=== PATIENT | female | born 1955 | race Caucasian/White ===

== ENCOUNTER 2016-07-07 04:23 | Emergency (ER) | payer SELFPAY ==
[~2016-07-07] VITALS: Ht 157.5 cm; Wt 91.0 kg
[~2016-07-07 04:23] MED LIST: HYDR-3533 PO
[2016-07-07 04:38] VITALS: BP 154/70; PULSE 94; RESP 16; TEMP 98.6; O2SAT 95
[2016-07-07 04:44] LABS: AUTOMATED NEUTROPHIL # 4.2 TH/MM3 (1.8-7.7); BASOPHIL # 0.1 TH/MM3 (0-0.2); EOSINOPHIL # 0.2 TH/MM3 (0-0.4); EOSINOPHIL % 3.3 % (0.0-4.0); HEMATOCRIT 34.8 % (35.0-46.0); LYMPH % 14.7 % (9.0-44.0); LYMPHOCYTE # 0.8 TH/MM3 (1.0-4.8); MEAN CORPUSCULAR HEMOGLOBIN 24.7 PG (27.0-34.0); MONO % 8.5 % (0.0-8.0); NEUT % 72.5 % (16.0-70.0); PLATELET COUNT 150 TH/MM3 (150-450); RED BLOOD COUNT 4.52 MIL/MM3 (4.00-5.30); RED CELL DISTRIBUTION WIDTH 18.6 % (11.6-17.2); WHITE BLOOD COUNT 5.8 TH/MM3 (4.0-11.0)
[2016-07-07 04:45] LABS: HEMO FLAGS AUTO DIFF
[2016-07-07] MEDS ORDERED: TETANUS/DIPHTHERIA TOXOID ADULT 0.5 ML VIAL IM ONE (04:45)
[2016-07-07] MEDS ORDERED: ALLO300T2 PO (04:50)
[2016-07-07 05:19] LABS: ALKALINE PHOSPHATASE 134 U/L (45-117); TOTAL BILIRUBIN ADULT 0.9 MG/DL (0.2-1.0)
--- NOTE | 2016-07-07 05:20 | PD ---
HPI Chief Complaint: Fall Time Seen by Provider: 04:32 Travel History International Travel<30 days: No Contact w/Intl Traveler<30days: No Traveled to known affect area: No History of Present Illness HPI This is a 61-year-old female with history of psoriasis, pancreatitis, chronic alcohol use, who presents after having a fall in the bathroom. The patient states she got up to use the bathroom and fell towards the vanity. The patient reports positive loss of consciousness. She reports pain to her face and nose. She denies any head or neck pain. She denies any abdominal pain. She denies any back or extremity pain. Patient is unsure of her last tetanus immunization. PFSH Past Medical History Arthritis: Yes (RIGHT HIP, BILATERAL KNEES) Autoimmune Disease: No Blood Disorders: No Depression: Yes Heart Rhythm Problems: No Cancer: Yes (ENDOMETRIAL CANCER) Cardiac Catheterization: Yes Cardiovascular Problems: No High Cholesterol: No Chemotherapy: Yes Chest Pain: No Congestive Heart Failure: No Diabetes: No Diminished Hearing: No Endocrine: No Gastrointestinal Disorders: Yes (GERD, perforated ulcer) GERD: Yes Gout: Yes Genitourinary: No Hepatitis: No Hiatal Hernia: No Hypertension: Yes Immune Disorder: No Implanted Vascular Access Dvce: Yes (port l. chest) Medical other: Yes (ARTHRITIS) Musculoskeletal: Yes (ARTHRITIS) Neurologic: No Psychiatric: No Respiratory: No Integumentary: Yes (PSORIASIS) Immunizations Current: Yes Myocardial Infarction: Yes (2006) Pancreatitis: Yes Radiation Therapy: Yes Thyroid Disease: No Ulcer: No Tetanus Vaccination: Unknown Influenza Vaccination: No Menopausal: Yes Past Surgical History Abdominal Surgery: Yes (APPENDECTOMY AGE 4; [facility] 1997) AICD: No Appendectomy: Yes Arteriovenous Shunt: No Cardiac Surgery: No Cholecystectomy: Yes (1995) Coronary Artery Bypass Graft: No Ear Surgery: No Endocrine Surgery: No Eye Surgery: Yes Genitourinary Surgery: No Gynecologic Surgery: Yes (D&C ; ) Hysterectomy: Yes Insulin Pump: No Joint Replacement: No Neurologic Surgery: No Oral Surgery: Yes (T&A AGE 1) Pacemaker: No Thoracic Surgery: No Tonsillectomy: Yes Other Surgery: Yes Family History Family Myocardial Infarction: Yes Social History Alcohol Use: Yes (Few drinks every day in past, quit) Tobacco Use: No (QUIT 1999) Substance Use: No Allergies-Medications (Allergen,Severity, Reaction): Coded Allergies: Oxycodone (Verified Allergy, Intermediate, RASH, 07/07/16) Erythromycin (Verified Allergy, Mild, RASH, 07/07/16) Penicillin (Verified Allergy, Mild, RASH, 07/07/16) Reported Meds & Prescriptions Reported Meds & Active Scripts Active Keflex (Cephalexin) 500 Mg Cap 500 Mg PO Q6H Lortab (Hydrocodone-Acetaminophen) 5-325 Mg Tab 1 Tab PO Q4H PRN Reported Allopurinol 300 Mg Tab 300 Mg PO HS Review of Systems Except as stated in HPI: all other systems reviewed are Neg Eyes: No: Diploplia, Blurred Vision HENT: Positive: Other, No: Headaches, Neck Pain Cardiovascular: No: Chest Pain or Discomfort (nose and facial bone pain), Palpitations Respiratory: No: Cough, Shortness of Breath Gastrointestinal: No: Nausea, Vomiting, Abdominal Pain Genitourinary: No: Incontinence Musculoskeletal: No: Weakness, Pain (no extremity pain) Neurologic: Positive: Other (positive loss of consciousness), No: Weakness, Headache Physical Exam Narrative GENERAL: Well-developed well-nourished female in C-spine backboard immobilization. SKIN: Focused skin assessment warm/dry. Patient has eczema to her bilateral lower extremities and back. There is no evidence of cellulitis or drainage. HEAD: Normocephalic. The patient had multiple contusions to her face with left orbital ecchymosis and swelling. EYES: Pupils equal and round. Her left eye was swollen however on opening her pupils were reactive. There is bleeding noted at the left lower orbital eyelid. No obvious large laceration appreciated. ENT: There is a laceration across the base/bridge of her nose. There is a small cut on her left lower lip that is not actively bleeding. This does not require repair. NECK: Trachea midline. No JVD. Supple. CARDIOVASCULAR: Regular rate and rhythm. No murmur appreciated. RESPIRATORY: No accessory muscle use. Clear to auscultation. Breath sounds equal bilaterally. GASTROINTESTINAL: Abdomen soft, obese, non-tender, nondistended. She does have a well-healed scar that is vertical. MUSCULOSKELETAL: No obvious deformities. No clubbing. No cyanosis. No edema. NEUROLOGICAL: Awake and alert. No obvious cranial nerve deficits. Motor grossly within normal limits. Normal speech. Data Data Last Documented VS Vital Signs Date Time Temp Pulse Resp B/P Pulse Ox O2 Delivery O2 Flow Rate FiO2 07/07/16 04:38 98.6 94 16 154/70 95 Orders Complete Blood Count With Diff (07/07/16 04:32) Comprehensive Metabolic Panel (07/07/16 04:32) Ct Brain W/O Iv Contrast(Rout) (07/07/16 04:32) Alcohol (Ethanol) (07/07/16 04:32) Ct Cerv Spine W/O Contrast (07/07/16 04:32) Tetanus/Diphtheria Tox Adult (Tetanus/Di (07/07/16 04:45) Ct Facial Bones W/O Iv Cont (07/07/16 04:49) Lidocai-Epi 1%-1:100,000 Inj (Xylocaine- (07/07/16 06:00) Labs Laboratory Tests Test 07/07/16 04:30 White Blood Count 5.8 TH/MM3 Red Blood Count 4.52 MIL/MM3 Hemoglobin 11.1 GM/DL Hematocrit 34.8 % Mean Corpuscular Volume 77.0 FL Mean Corpuscular Hemoglobin 24.7 PG Mean Corpuscular Hemoglobin 32.0 % Concent Red Cell Distribution Width 18.6 % Platelet Count 150 TH/MM3 Mean Platelet Volume 9.6 FL Neutrophils (%) (Auto) 72.5 % Lymphocytes (%) (Auto) 14.7 % Monocytes (%) (Auto) 8.5 % Eosinophils (%) (Auto) 3.3 % Basophils (%) (Auto) 1.0 % Neutrophils # (Auto) 4.2 TH/MM3 Lymphocytes # (Auto) 0.8 TH/MM3 Monocytes # (Auto) 0.5 TH/MM3 Eosinophils # (Auto) 0.2 TH/MM3 Basophils # (Auto) 0.1 TH/MM3 CBC Comment AUTO DIFF Differential Comment AUTO DIFF CONFIRMED Platelet Estimate NORMAL Platelet Morphology Comment NORMAL Ovalocytes 1+ Acanthocytes OCC Keratocytes OCC Sodium Level 140 MEQ/L Potassium Level 4.4 MEQ/L Chloride Level 105 MEQ/L Carbon Dioxide Level 24.7 MEQ/L Anion Gap 10 MEQ/L Blood Urea Nitrogen 12 MG/DL Creatinine 0.78 MG/DL Estimat Glomerular Filtration 75 ML/MIN Rate Random Glucose 115 MG/DL Calcium Level 9.0 MG/DL Total Bilirubin 0.9 MG/DL Aspartate Amino Transf 59 U/L (AST/SGOT) Alanine Aminotransferase 25 U/L (ALT/SGPT) Alkaline Phosphatase 134 U/L Total Protein 7.9 GM/DL Albumin 3.6 GM/DL Ethyl Alcohol Level 261 MG/DL MDM Medical Decision Making Medical Screen Exam Complete: Yes Emergency Medical Condition: Yes Interpretation(s) Last [address] 07/07/16 0449 Signed Impressions: Service Date/Time: Thursday, July 07, 2016 04:53 - CONCLUSION: Small nondisplaced fracture involving the left nasal bone. Soft tissue swelling over left orbit. Puneet Perez MD Head CT 07/07/16 0432 Signed Impressions: Service Date/Time: Thursday, July 07, 2016 04:50 - CONCLUSION: 1. Unremarkable CT scan of brain. 2. Soft tissue swelling over left orbit. Puneet Perez MD Cervical Spine CT 07/07/16 0432 Signed Impressions: Service Date/Time: Thursday, July 07, 2016 04:51 - CONCLUSION: 1. No acute bony fracture. 2. Left paracentral disc bulging with disc osteophyte complex at C5- 6. 3. Primary degenerative changes of the mid to lower cervical spine. Puneet Perez MD Differential Diagnosis Facial bone fractures versus intracranial hemorrhage versus cervical spine injury versus electrolyte abnormality Narrative Course 61-year-old female who presents after having a fall in the bathroom. Patient states she got up to use the restroom and fell striking her head on the vanity. The patient has a nondisplaced left nasal bone fracture. CT scan of the brain and cervical spine show no evidence of acute injury. She does have degenerative changes of her cervical spine. Laboratory tests are within normal limits. Serum alcohol level is 290. She has had her laceration repaired she' ll FRANK mcgowan. She will be placed on Keflex. She is instructed to not drink alcohol. She was given tetanus immunization as well. She is instructed to follow up with her primary care physician. Diagnosis Primary Impression: Blunt head trauma Additional Impressions: Nasal bone fracture Alcohol intoxication Additional Instructions: Avoid drinking alcohol. Follow up with primary care physician. Suture removal in 5-7 days. Med/Other Pt SpecificInfo: Prescription(s) given Scripts Cephalexin (Keflex)500 Mg Glv530 Mg PO Q6H #28 CAP Ref 0 Prov:Carl Rajput MD 07/07/16 Disposition: 01 DISCHARGE HOME Condition: Stable Carl Rajput MD July 07, 2016 05:20
--- NOTE | 2016-07-07 05:20 | RADRPT ---
EXAM DATE/TIME: 07/07/2016 04:50 [facility] COMPARISON: No previous studies available for comparison. INDICATIONS : Trauma, fall onto counter. RADIATION DOSE: 56.35 CTDIvol (mGy) MEDICAL HISTORY : Hypertension. Osteoarthritis. SURGICAL HISTORY : None. ENCOUNTER: Initial ACUITY: 1 day PAIN SCALE: 8/10 LOCATION: cranial TECHNIQUE: Multiple contiguous axial images were obtained of the head. Using automated exposure control and adj ustment of the mA and/or kV according to patient size, radiation dose was kept as low as reasonably a chievable to obtain optimal diagnostic quality images. FINDINGS: CEREBRUM: The ventricles are normal for age. No evidence of midline shift, mass lesion, hemorrhage or acute in farction. No extra-axial fluid collections are seen. POSTERIOR FOSSA: The cerebellum and brainstem are intact. The 4th ventricle is midline. The cerebellopontine angle i s unremarkable. EXTRACRANIAL: The visualized portion of the orbits is intact. There is soft tissue swelling over the left orbit. SKULL: The calvaria is intact. No evidence of skull fracture. CONCLUSION: 1. Unremarkable CT scan of brain. 2. Soft tissue swelling over left orbit. Puneet Perez MD on July 07, 2016 at 5:17 Board Certified Radiologist. This report was verified electronically.
--- NOTE | 2016-07-07 05:23 | RADRPT ---
EXAM DATE/TIME: 07/07/2016 04:51 [facility] COMPARISON: No previous studies available for comparison. INDICATIONS : Trauma, fall onto counter. RADIATION DOSE: 24.92 CTDIvol (mGy) MEDICAL HISTORY : Hypertension. Osteoarthritis. SURGICAL HISTORY : None. ENCOUNTER: Initial ACUITY: 1 day PAIN SCALE: 5/10 LOCATION: neck TECHNIQUE: Volumetric scanning of the cervical spine was performed. Multiplanar reconstructions in the sagittal, coronal and oblique axial planes were performed. Using automated exposure control and adjustment o f the mA and/or kV according to patient size, radiation dose was kept as low as reasonably achievable to obtain optimal diagnostic quality images. FINDINGS: VERTEBRAE: Normal vertebral body height. There are primary bony degenerative changes involving the mid to lower cervical spine. There is disc space narrowing at C5-6 and C6-7. ALIGNMENT: No evidence of subluxation. C2-C3: The bony spinal canal is normal in size. No evidence of disc bulge or herniation. The neural forami na are bilaterally patent. C3-C4: The bony spinal canal is normal in size. No evidence of disc bulge or herniation. The neural forami na are bilaterally patent. C4-C5: The bony spinal canal is normal in size. No evidence of disc bulge or herniation. The neural forami na are bilaterally patent. There is facet arthritis on the left side. C5-C6: Left paracentral bulging disc osteophyte complex. The neural foramina are patent bilaterally. C6-C7: The bony spinal canal is normal in size. No evidence of disc bulge or herniation. The neural forami na are bilaterally patent. C7-T1: The bony spinal canal is normal in size. No evidence of disc bulge or herniation. The neural forami na are bilaterally patent. CONCLUSION: 1. No acute bony fracture. 2. Left paracentral disc bulging with disc osteophyte complex at C5-6. 3. Primary degenerative changes of the mid to lower cervical spine. Puneet Perez MD on July 07, 2016 at 5:19 Board Certified Radiologist. This report was verified electronically.
[2016-07-07 05:25] LABS: ACANTHOCYTES OCC (NORMAL); ALT (GPT) 25 U/L (10-53); ANION GAP 10 MEQ/L (5-15); AST (GOT) 59 U/L (15-37); BICARBONATE 24.7 MEQ/L (21.0-32.0); BLOOD UREA NITROGEN 12 MG/DL (7-18); CHLORIDE 105 MEQ/L (98-107); GLOMERULAR FILTRATION RATE 75 ML/MIN (>89); KERATOCYTES OCC (NORMAL); OVALOCYTES 1+ (NORMAL); PLATELET ESTIMATE SMEAR NORMAL (NORMAL); PLATELET MORPHOLOGY NORMAL (NORMAL); POTASSIUM 4.4 MEQ/L (3.5-5.1); SODIUM (NA) 140 MEQ/L (136-145)
--- NOTE | 2016-07-07 05:25 | RADRPT ---
EXAM DATE/TIME: 07/07/2016 04:53 [facility] COMPARISON: No previous studies available for comparison. INDICATIONS : Trauma, fall onto counter. RADIATION DOSE: 36.81 CTDIvol (mGy) MEDICAL HISTORY : Hypertension. Osteoarthritis. SURGICAL HISTORY : None. ENCOUNTER: Initial ACUITY: 1 day PAIN SCORE: 8/10 LOCATION: facial TECHNIQUE: Volumetric scanning of the facial bones was performed. Using automated exposure control and adjustme nt of the mA and/or kV according to patient size, radiation dose was kept as low as reasonably achiev able to obtain optimal diagnostic quality images. FINDINGS: There is a small fracture involving the left nasal bone. The rest of the bony structures involving th e facial bones are grossly intact. The paranasal sinuses are grossly clear. There is nasal septal dev iation to the left. The mandible is grossly intact. There is soft tissue swelling over the left orbit . Both globes are grossly intact. CONCLUSION: Small nondisplaced fracture involving the left nasal bone. Soft tissue swelling over left orbit. Puneet Perez MD on July 07, 2016 at 5:22 Board Certified Radiologist. This report was verified electronically.
[2016-07-07 05:26] LABS: SCAN/DIFF AUTO DIFF CONFIRMED
[2016-07-07] MEDS ORDERED: LIDOCAINE 1%/EPINEPHrine 1:100,000 SOLN 20 ML VIAL INFIL ONE (06:00)
[2016-07-07] MEDS ORDERED: CEPH-460 PO (06:17)
--- NOTE | 2016-07-07 06:18 | PD ---
Physical Exam Date Seen by Provider: July 07, 2016 Time Seen by Provider: 06:15 Narrative Skin: Patient has a 2.5 cm laceration across the bridge of the nose. This is a lazy L-type laceration. Data Data Last Documented VS Vital Signs Date Time Temp Pulse Resp B/P Pulse Ox O2 Delivery O2 Flow Rate FiO2 07/07/16 04:38 98.6 94 16 154/70 95 Orders Complete Blood Count With Diff (07/07/16 04:32) Comprehensive Metabolic Panel (07/07/16 04:32) Ct Brain W/O Iv Contrast(Rout) (07/07/16 04:32) Alcohol (Ethanol) (07/07/16 04:32) Ct Cerv Spine W/O Contrast (07/07/16 04:32) Tetanus/Diphtheria Tox Adult (Tetanus/Di (07/07/16 04:45) Ct Facial Bones W/O Iv Cont (07/07/16 04:49) Lidocai-Epi 1%-1:100,000 Inj (Xylocaine- (07/07/16 06:00) Labs Laboratory Tests Test 07/07/16 04:30 White Blood Count 5.8 TH/MM3 Red Blood Count 4.52 MIL/MM3 Hemoglobin 11.1 GM/DL Hematocrit 34.8 % Mean Corpuscular Volume 77.0 FL Mean Corpuscular Hemoglobin 24.7 PG Mean Corpuscular Hemoglobin 32.0 % Concent Red Cell Distribution Width 18.6 % Platelet Count 150 TH/MM3 Mean Platelet Volume 9.6 FL Neutrophils (%) (Auto) 72.5 % Lymphocytes (%) (Auto) 14.7 % Monocytes (%) (Auto) 8.5 % Eosinophils (%) (Auto) 3.3 % Basophils (%) (Auto) 1.0 % Neutrophils # (Auto) 4.2 TH/MM3 Lymphocytes # (Auto) 0.8 TH/MM3 Monocytes # (Auto) 0.5 TH/MM3 Eosinophils # (Auto) 0.2 TH/MM3 Basophils # (Auto) 0.1 TH/MM3 CBC Comment AUTO DIFF Differential Comment AUTO DIFF CONFIRMED Platelet Estimate NORMAL Platelet Morphology Comment NORMAL Ovalocytes 1+ Acanthocytes OCC Keratocytes OCC Sodium Level 140 MEQ/L Potassium Level 4.4 MEQ/L Chloride Level 105 MEQ/L Carbon Dioxide Level 24.7 MEQ/L Anion Gap 10 MEQ/L Blood Urea Nitrogen 12 MG/DL Creatinine 0.78 MG/DL Estimat Glomerular Filtration 75 ML/MIN Rate Random Glucose 115 MG/DL Calcium Level 9.0 MG/DL Total Bilirubin 0.9 MG/DL Aspartate Amino Transf 59 U/L (AST/SGOT) Alanine Aminotransferase 25 U/L (ALT/SGPT) Alkaline Phosphatase 134 U/L Total Protein 7.9 GM/DL Albumin 3.6 GM/DL Ethyl Alcohol Level 261 MG/DL [facility] Medical Record Reviewed: Yes Supervised Visit with MAGGIE: Yes Interpretation(s) Last [address] 07/07/16 0449 Signed Impressions: Service Date/Time: Thursday, July 07, 2016 04:53 - CONCLUSION: Small nondisplaced fracture involving the left nasal bone. Soft tissue swelling over left orbit. Puneet Perez MD Head CT 07/07/16 0432 Signed Impressions: Service Date/Time: Thursday, July 07, 2016 04:50 - CONCLUSION: 1. Unremarkable CT scan of brain. 2. Soft tissue swelling over left orbit. Puneet Perez MD Cervical Spine CT 07/07/16 0432 Signed Impressions: Service Date/Time: Thursday, July 07, 2016 04:51 - CONCLUSION: 1. No acute bony fracture. 2. Left paracentral disc bulging with disc osteophyte complex at C5- 6. 3. Primary degenerative changes of the mid to lower cervical spine. Puneet Perez MD Differential Diagnosis MDM: High Differential diagnoses: Fracture, sprain, strain, dislocation, contusion, neurovascular injury Narrative Course Patient's laceration is closed with sutures. Tetanus status updated. Procedures Procedure Narrative LACERATION LOCATION: Nasal bridge LENGTH: 2.5 cm NUMBER OF STITCHES/GARO: 5 REPAIR: The area of the laceration was prepped with Betadine and sterilely draped. The laceration was infiltrated with 1% lidocaine with epinephrine. The wound was copiously irrigated and explored without evidence of foreign body , tendon injury or neurovascular injury. The wound was closed using 6-0 proline. This was a simple single layer repair. A sterile dressing was applied. The patient was advised to keep the dressing clean and dry. Patient tolerated the procedure well. Diagnosis Primary Impression: Blunt head trauma Additional Impressions: Nasal bone fracture Alcohol intoxication Additional Instruction: Avoid drinking alcohol. Follow up with primary care physician. Rest. Ice pack tonight. Tylenol or Advil for pain. Daily wound care with soap, water, Neosporin. Sutures out in 5 days. Sunscreen and mederma for 6 months. Return to the ER for any problems. Med/Other Pt SpecificInfo: Wound Care Disposition: 01 DISCHARGE HOME Condition: Stable Gerardo Benitez July 07, 2016 06:17
[2016-07-07 06:32] VITALS: BP 139/62
== END 2016-07-07 06:48 | disposition home or self-care (01) ==
LOC: NEPE 04:23
DX: S09.90XA Unspecified injury of head, initial encounter (principal); S02.2XXA Fracture of nasal bones, initial encounter for closed fracture; F10.129 Alcohol abuse with intoxication, unspecified; I10 Essential (primary) hypertension; I25.2 Old myocardial infarction; K21.9 Gastro-esophageal reflux disease without esophagitis; Z87.891 Personal history of nicotine dependence; Z85.42 Personal history of malignant neoplasm of other parts of uterus; Z23 Encounter for immunization; W18.30XA Fall on same level, unspecified, initial encounter; Y93.E8 Activity, other personal hygiene; Y92.002 Bathroom of unspecified non-institutional (private) residence as the place of occurrence of the external cause; Y99.8 Other external cause status
CPT/HCPCS: 12011; 70450; 70486; 72125; 80053; 80307; 85025; 90471; 90714